=== PATIENT | female | born 1995 | race Caucasian/White ===

== ENCOUNTER 2022-05-13 00:59 | Inpatient (IN) | payer OTHER ==
[~2022-05-13] VITALS: Ht 167.6 cm; Wt 86.2 kg
--- NOTE | 2022-05-14 08:38 | PR ---
[facility] [address] [place], [place] [address] Signed PP Progress Notes Datetime Report Generated by JOSE SUBJECTIVE: [id number] Pain: Within Normal Limits Nausea/Vomiting: Denies Flatus: Yes Bowel Movement: No Vital Signs: [id number] Vital Signs: Reviewed; Within Normal Limits Notable Details: normotensive since delivery Cardiovascular: Normal Respiratory: Normal Abdomen/Uterus: Normal Lochia: Normal CVA Tenderness: Normal Extremities: Normal Progress: Normal Exam Comments: NAD, sitting in chair at bedside RRR No dyspnea/ retractions And SNTND, FFBU Ext: no edema IMPRESSION/PLAN/PROCEDURES: [id number] Impression: Normal Progression Plan: Continue Present Management Procedures: None Progress Notes: PPD#1 s/p , delivery complicated by stellate laceration -Hgb 10.5 from 13.5 on admission -progressing well : ambulating, voiding, tolerating regular diet, lochia moderate, pain well controlled with orals, well, desires pill for contraception -Baby ABO A negative, rhogam not indicated Anticipate DC to home tomorrow Signing Physician: Sissy Mujica DO *Electronically Signed* 05/14/22 0838 SISSY MUJICA DO PATIENT NAME: DEON HUTCHISON PROGRESS NOTE DATE OF : 97 PHYSICIAN: SISSY MUJICA DO RPT #: [id number] REPORT IS CONFIDENTIAL AND NOT TO BE RELEASED WITHOUT AUTHORIZATION
--- NOTE | 2022-05-15 08:10 | PR ---
[facility] [address] [facility] [place], [place] [address] Signed PP Progress Notes Datetime Report Generated by JOSE SUBJECTIVE: [id number] Pain: Within Normal Limits Nausea/Vomiting: Denies Flatus: Yes Bowel Movement: No Vital Signs: [id number] Vital Signs: Reviewed; Within Normal Limits Notable Details: normotensive Cardiovascular: Normal Respiratory: Normal Abdomen/Uterus: Normal Lochia: Normal Breasts: Normal CVA Tenderness: Normal Extremities: Normal Progress: Normal Exam Comments: NAD, resting in bed RRR NO dyspnea/ retractions Abd SNTND, FFBU Ext: 1+ BLLE, neg Demian's BL IMPRESSION/PLAN/PROCEDURES: [id number] Impression: Normal Progression Plan: Continue Present Management; Discharge Procedures: None Progress Notes: Pt is a 27 yo PPD#2 s/p -Ambulating, voiding, tolerating regular diet -Lochia light, pain well-controlled with motrin - well, planning pills for contraception -No headache/ vision changes/ RUQ pain Anticipate DC to home today with BP check in office early next week Signing Physician: Sissy Mujica DO *Electronically Signed* 05/15/22 0810 SISSY MUJICA DO PATIENT NAME: DEON HUTCHISON PROGRESS NOTE DATE OF : 97 PHYSICIAN: SISSY MUIJCA DO [facility] #: [id number] REPORT IS CONFIDENTIAL AND NOT TO BE RELEASED WITHOUT AUTHORIZATION
== END 2022-05-15 14:15 | disposition home or self-care (01) | DRG 805 ==
LOC: FBCO 00:59 → FBC 02:54
PROVIDERS: ADMIT Obstetrics & Gynecology; ATTEND Obstetrics & Gynecology
PROC: 10E0XZZ Delivery of Products of Conception, External Approach (ICD-10-PCS; principal; 2022-05-13)
PROC: 0KQM0ZZ Repair Perineum Muscle, Open Approach (ICD-10-PCS; 2022-05-13)
PROC: 10907ZC Drainage of Amniotic Fluid, Therapeutic from Products of Conception, Via Natural or Artificial Opening (ICD-10-PCS; 2022-05-13)
PROC: 0UQMXZZ Repair Vulva, External Approach (ICD-10-PCS; 2022-05-13)
PROC: 3E0R3BZ Introduction of Anesthetic Agent into Spinal Canal, Percutaneous Approach (ICD-10-PCS; 2022-05-13)
PROC: 00HU33Z Insertion of Infusion Device into Spinal Canal, Percutaneous Approach (ICD-10-PCS; 2022-05-13)
PROC: 8E0ZXY6 Isolation (ICD-10-PCS; 2022-05-13)
DX: O99.824 Streptococcus B carrier state complicating childbirth (principal); U07.1 COVID-19; Z37.0 Single live birth; O98.52 Other viral diseases complicating childbirth; O70.1 Second degree perineal laceration during delivery; O43.123 Velamentous insertion of umbilical cord, third trimester; Z3A.40 40 weeks gestation of pregnancy; O48.0 Post-term pregnancy; O14.94 Unspecified pre-eclampsia, complicating childbirth; O99.62 Diseases of the digestive system complicating childbirth; O99.344 Other mental disorders complicating childbirth; K21.9 Gastro-esophageal reflux disease without esophagitis; F90.9 Attention-deficit hyperactivity disorder, unspecified type
CPT/HCPCS: 01960; 36415; 82565; 82570; 83030; 84156; 84450; 84520; 84550; 85025; 85027; 86850; 86900; 86901; A9270; J2405; J2540; J2590; J2790; J2795; J7121

== ENCOUNTER 2024-01-26 18:10 | Inpatient (IN) | payer OTHER ==
[2024-01-27] MEDS ORDERED: LACTATED RINGER'S 1,000 ML IV PRN (07:30)
[2024-01-27] MEDS ORDERED: CALCIUM CARBONATE 500 MG CHEW PO PRN ×2 (07:30→20:00)
[2024-01-27] MEDS ORDERED: OXYTOCIN/DEXTROSE 5% 20 UNITS/100 ML BAG IV SCH (07:30)
[2024-01-27] MEDS ORDERED: PENICILLIN G POTASSIUM 5 MUNITS/110 ML PIGGYBACK IV ONE (07:30)
[2024-01-27] MEDS ORDERED: miSOPROStoL 25 MCG TAB PV SCH (07:30)
[2024-01-27] MEDS ORDERED: MAGNESIUM HYDROXIDE/AL HYDROX 30 ML CUP PO PRN ×2 (07:30→20:00)
[2024-01-27] MEDS ORDERED: LACTATED RINGER'S 1,000 ML IV SCH (07:30)
[2024-01-27 07:32] LABS: HEMATOCRIT 39.6 % (35.0-50.0); HEMOGLOBIN 13.5 g/dL (12.0-18.0); MCH 32.4 (27-36); MCV 95.3 fl (81-99); RBC 4.16 M/ul (4.3-5.7); RDW 12.9 (10.5-15.0)
[2024-01-27 08:01] LABS: ABO A; ANTIBODY SCREEN NEGATIVE; RH NEGATIVE
[2024-01-27 08:23] LABS: AMPHETAMINES, URINE NEGATIVE (NEGATIVE); BARBITURATES, URINE NEGATIVE (NEGATIVE); BENZODIAZEPINE, URINE NEGATIVE (NEGATIVE); BUPRENORPHINE, URINE NEGATIVE (NEGATIVE); CANNABINOID, URINE NEGATIVE (NEGATIVE); COCAINE, URINE NEGATIVE (NEGATIVE); ECSTASY, URINE NEGATIVE (NEGATIVE); FENTANYL, URINE NEGATIVE (NEGATIVE); METHADONE, URINE NEGATIVE (NEGATIVE); OPIATES, URINE NEGATIVE (NEGATIVE); OXYCODONE, URINE NEGATIVE (NEGATIVE); PHENCYCLIDINE, URINE NEGATIVE (NEGATIVE)
[2024-01-27 10:04] VITALS: BP 126/66
[2024-01-27] MEDS ORDERED: PENICILLIN G POTASSIUM 2.5 MUNITS in DEXTROSE 5% 100 ML IV SCH (11:30)
--- NOTE | 2024-01-27 12:14 | PR ---
[facility] [address] [facility] [place], [place] [address] Signed Progress Notes IP Datetime Report Generated by JOSE PROGRESS NOTES: [id number] Impression: Normal Progression of Labor; Reassuring Heart Rate Procedures: Artificial ROM; Sterile Vag Exam Plan: Continue Present Management VITAL SIGNS: [id number] Vital Signs: Reviewed; Within Normal Limits EXAM: [id number] Dilatation: 2.0 Effacement: 75 Station: -2 MEMBRANES: [id number] Comments: Still comfortable but has made some cervical change. Hopefully, she will become more uncomfortable after AROM. FETUS A: [id number] FHR Baseline: 145 Variability: Moderate 6-25bpm Accelerations: 15X15 Decelerations: None FHR Category: Category I Presentation: Vertex Comments on Fetus A: overall reassuring FETUS B: [id number] Signing Physician: Mikayla Doe MD Copies: ~ *Electronically Signed* 01/27/24 1214 MIKAYLA DOE MD PATIENT NAME: FOSTERDEONORLY HOLBROOK PROGRESS NOTE DATE OF : 97 PHYSICIAN: MIKAYLA DOE MD RPT #: [id number] REPORT IS CONFIDENTIAL AND NOT TO BE RELEASED WITHOUT AUTHORIZATION
[2024-01-27] MEDS ORDERED: fentaNYL citrate 100 MCG/2 ML VIAL ONE (15:04)
[2024-01-27] MEDS ORDERED: ROPIVACAINE 0.2% 200 ML BAG ONE (15:05)
[2024-01-27] MEDS ORDERED: ROPIVACAINE 0.2% 200 ML BAG EPIDURAL SCH (15:15)
[2024-01-27] MEDS ORDERED: LACTATED RINGER'S 500 ML IV PRN (15:15)
[2024-01-27] MEDS ORDERED: ePHEDrine sulfate 5 MG/ML SYRINGE IV PRN (15:15)
[2024-01-27] MEDS ORDERED: LACTATED RINGER'S 2,000 ML IV ONE (15:15)
--- NOTE | 2024-01-27 18:14 | PR ---
[facility] [address] [facility] [place], [place] [address] Signed Progress Notes IP Datetime Report Generated by JOSE PROGRESS NOTES: [id number] Impression: Normal Progression of Labor Procedures: Sterile Vag Exam Plan: Continue Present Management VITAL SIGNS: [id number] Vital Signs: Reviewed; Within Normal Limits EXAM: [id number] Dilatation: 6.0 Effacement: 100 Station: -2 Contractions: q 2 to 3 min MEMBRANES: [id number] Comments: Progressing well. Will continue. FETUS A: [id number] FHR Baseline: 145 Variability: Moderate 6-25bpm Accelerations: 15X15 Decelerations: None FHR Category: Category I Presentation: Vertex Comments on Fetus A: overall reassuring FETUS B: [id number] Signing Physician: Mikayla Doe MD Copies: ~ *Electronically Signed* 01/27/24 1814 MIKAYLA DOE MD PATIENT NAME: DEON HUTCHISON PROGRESS NOTE DATE OF : 97 PHYSICIAN: MIKAYLA DOE MD RPT #: [id number] REPORT IS CONFIDENTIAL AND NOT TO BE RELEASED WITHOUT AUTHORIZATION
[2024-01-27] MEDS ORDERED: dexmedeTOMIDine HCl 200 MCG/2 ML VIAL ONE (19:08)
[2024-01-27] MEDS ORDERED: ACETAMINOPHEN 325 MG TAB PO PRN (20:00)
[2024-01-27] MEDS ORDERED: LIDOCAINE 2% VISCOUS 6 ML SYR TOP ONE ×2 (20:00)
[2024-01-27] MEDS ORDERED: IBUPROFEN 600 MG TAB PO PRN (20:00)
[2024-01-27] MEDS ORDERED: MAGNESIUM HYDROXIDE 30 ML UDC PO PRN (20:00)
[2024-01-27] MEDS ORDERED: WITCH HAZEL/GLYCERIN 1 EA PAD TOP PRN (20:00)
[2024-01-27] MEDS ORDERED: BENZOCAINE 60 ML AEROSOL TOP PRN (20:00)
[2024-01-27] MEDS ORDERED: HYDROCODONE/ACETA 5/325 TAB PO PRN (20:00)
[2024-01-27] MEDS ORDERED: HYDROCORTISONE ACETATE 25 MG SUPP PR PRN (20:00)
[2024-01-27] MEDS ORDERED: OXYTOCIN/0.9 % SODIUM CHLORIDE 500 ML IV SCH (20:00)
[2024-01-27] MEDS ORDERED: SENNOSIDES/DOCUSATE 1 EA TAB PO SCH (21:00)
[2024-01-28 05:26] LABS: HEMATOCRIT 36.1 % (35.0-50.0); HEMOGLOBIN 12.2 g/dL (12.0-18.0); MCH 32.4 (27-36); MCHC 33.9 g/dl (30-36); MCV 95.8 fl (81-99); RBC 3.77 M/ul (4.3-5.7)
[2024-01-28 06:05] LABS: ABO A; RH NEGATIVE
[2024-01-28 06:06] LABS: ANTIBODY SCREEN NEGATIVE; FETAL HEMOGLOBIN SCREEN NEGATIVE
--- NOTE | 2024-01-28 09:17 | PR ---
[facility] [address] [facility] [place], [place] [address] Signed PP Progress Notes Datetime Report Generated by JOSE SUBJECTIVE: [id number] Pain: Within Normal Limits Vital Signs: [id number] Vital Signs: Reviewed Notable Details: intermittent mild HTN Cardiovascular: Not Done Respiratory: Not Done Abdomen/Uterus: Abnormal Lochia: Normal Vulva/Perineum: Not Done Breasts: Not Done CVA Tenderness: Not Done Extremities: Normal Incision: Not Applicable Progress: Abnormal Exam Comments: Fundus firm, NT @ U-2. H/H 12.2/36.1, WBC 15.5, plat 239k IMPRESSION/PLAN/PROCEDURES: [id number] Impression: Normal Progression; Induced Hypertension Plan: Continue Present Management Procedures: None Progress Notes: Doing well overall but BPs with some mild elevations. I think she would benefit from continued observation with discharge in am if continues to do well. Signing Physician: Mikayla Doe MD Copies: ~ *Electronically Signed* 01/28/24916 MIKAYLA DOE MD PATIENT NAME: DEON HUTCHISON PROGRESS NOTE DATE OF : 97 PHYSICIAN: MIKAYLA DOE MD RPT #: [id number] REPORT IS CONFIDENTIAL AND NOT TO BE RELEASED WITHOUT AUTHORIZATION
--- NOTE | 2024-01-29 11:08 | PR ---
[facility] [address] [place], [place] [address] Signed PP Progress Notes Datetime Report Generated by CPN: 01/29/2024 11:08 SUBJECTIVE: [id number] Pain: Within Normal Limits Nausea/Vomiting: Denies Flatus: Yes Bowel Movement: Yes Vital Signs: [id number] Vital Signs: Reviewed; Within Normal Limits Notable Details: Continued intermittent mild elevated blood pressures Cardiovascular: Not Done Respiratory: Not Done Abdomen/Uterus: Normal Lochia: Normal Vulva/Perineum: Not Done Breasts: Not Done CVA Tenderness: Not Done Extremities: Normal Incision: Not Applicable Progress: Normal Exam Comments: Fundus firm, NT @ U-2. H/H 12.2/36.1, WBC 15.5, plat 239k IMPRESSION/PLAN/PROCEDURES: [id number] Impression: Normal Progression Plan: Discharge Procedures: None Progress Notes: S: 28 yo s/p vaginal delivery following IOL for preeclampsia without severe features. PPD#2. Doing well. Denies SINGH, CP, SOB, F/C, N/V, RUQ pain, changes in vision, vaginal discharge. Tolerating regular diet, ambulating, voiding own own, pain controlled. No concerns or complaints. O: AFVSS Abd: Soft. Non-distended. Fundus firm and below umbilicus Musc: FIELDS A/P: 28 yo s/p vaginal delivery following IOL for preeclampsia without severe features. Doing well. Meeting all hospital milestones. Will discharge home today. Signing Physician: Humphrey Berry MD *Electronically Signed* 01/29/24 1108 HUMPHREY BERRY MD PATIENT NAME: FOSTERDEON PROGRESS NOTE DATE OF : 97 PHYSICIAN: HUMPHREY BERRY MD RPT #: [id number] REPORT IS CONFIDENTIAL AND NOT TO BE RELEASED WITHOUT AUTHORIZATION [facility] [address] [place], [place] [address] Signed Copies: ~ *Electronically Signed* 01/29/241107 HUMPHREY BERRY MD PATIENT NAME: DEON HUTCHISON PROGRESS NOTE DATE OF : 97 PHYSICIAN: HUMPHREY BERRY MD RPT #: [id number] REPORT IS CONFIDENTIAL AND NOT TO BE RELEASED WITHOUT AUTHORIZATION
== END 2024-01-29 13:25 | disposition home or self-care (01) | DRG 806 ==
LOC: FBCO 18:10 → FBC 01-27 01:47 → NUR 01-27 06:29 → FBC 01-27 06:29 → FBCO 01-27 18:29 → EDSTATUS 01-27 18:44 → FBC 01-27 18:46
PROVIDERS: ADMIT Obstetrics & Gynecology; ATTEND Obstetrics & Gynecology
PROC: 10E0XZZ Delivery of Products of Conception, External Approach (ICD-10-PCS; principal; 2024-01-27)
PROC: 0KQM0ZZ Repair Perineum Muscle, Open Approach (ICD-10-PCS; 2024-01-27)
PROC: 3E0R3BZ Introduction of Anesthetic Agent into Spinal Canal, Percutaneous Approach (ICD-10-PCS; 2024-01-27)
PROC: 00HU33Z Insertion of Infusion Device into Spinal Canal, Percutaneous Approach (ICD-10-PCS; 2024-01-27)
PROC: 10907ZC Drainage of Amniotic Fluid, Therapeutic from Products of Conception, Via Natural or Artificial Opening (ICD-10-PCS; 2024-01-27)
DX: O14.04 Mild to moderate pre-eclampsia, complicating childbirth (principal); O98.32 Other infections with a predominantly sexual mode of transmission complicating childbirth; Z37.0 Single live birth; O76 Abnormality in fetal heart rate and rhythm complicating labor and delivery; O13.4 Gestational [pregnancy-induced] hypertension without significant proteinuria, complicating childbirth; Z3A.37 37 weeks gestation of pregnancy; O99.824 Streptococcus B carrier state complicating childbirth; O70.1 Second degree perineal laceration during delivery; O99.334 Smoking (tobacco) complicating childbirth; F17.210 Nicotine dependence, cigarettes, uncomplicated; A60.09 Herpesviral infection of other urogenital tract
CPT/HCPCS: 01960; 36415; 80307; 83030; 85027; 86850; 86900; 86901; A9270; J2540; J2590; J2790; J7121